=== PATIENT | male | born 1980 | race Caucasian/White ===

== ENCOUNTER 2018-02-24 11:51 | Outpatient (CLI) | payer OTHER ==
--- NOTE | 2018-02-24 14:27 | XRAY Report ---
Procedure Date: 02/24/2018 Accession Number: [id number] / [id number] Procedure: XRS - Hand 3 View RT CPT Code: FULL RESULT: EXAM: Hand 3 View RT DATE: 02/24/2018 12:11 PM CLINICAL HISTORY: PERSISTENT PAIN BONY MASS S/P RHAND INJURY 3 MO COMPARISON: None. TECHNIQUE: 3 views. FINDINGS: Bones: Normal. No fractures or bone lesions. Joints: Normal. No subluxations. Soft Tissues: Normal. No soft tissue swelling. IMPRESSION: Normal hand radiography. [facility]
== END 2018-02-24 11:52 | disposition home or self-care (01) ==
LOC: DI.S 11:51
PROVIDERS: ATTEND Registered Nurse
DX: M79.641 Pain in right hand (principal)

== ENCOUNTER 2024-02-17 07:00 | Outpatient (CLI) | payer BC, OTHER ==
--- NOTE | 2024-02-18 07:23 | XRAY Report ---
PROCEDURE: Elbow 3+V LT INDICATIONS: LEFT BICEPS TENDON RUPTURE TECHNIQUE: 3 views of the elbow were acquired. COMPARISON: None. FINDINGS: Bones: No fractures or dislocations. No suspicious bony lesions. Soft tissues: No effusion. No suspicious soft tissue calcifications or masses. IMPRESSION: No acute bony abnormality or significant joint effusion. If clinical symptoms persist, consider MRI f or further evaluation. Reviewed by: Deidre Coughlin MD on 02/18/2024 7:22 AM PDT Approved by: Deidre Coughlin MD on 02/18/2024 7:22 AM PDT Station ID: [id number]
== END 2024-02-17 23:59 | disposition home or self-care (01) ==
LOC: DI.S 07:00
PROVIDERS: ATTEND Emergency Medicine
DX: M66.822 Spontaneous rupture of other tendons, left upper arm (principal)

== ENCOUNTER 2024-02-23 08:00 | Outpatient (CLI) | payer BC ==
--- NOTE | 2024-02-23 21:59 | XRAY Report ---
PROCEDURE: Hand 1-2V LT INDICATIONS: LACERATION WITH FB POST TECHNIQUE: 2 views of the hand(s) acquired. COMPARISON: 02/23/2024. FINDINGS: Bones: No fractures or dislocations. No suspicious bony lesions. Soft tissues: Previously seen radiopaque soft tissue foreign bodies projecting near the head of the third metacarpal are no longer visualized and presumably removed. No suspicious soft tissue calcifica tions or masses. IMPRESSION: No acute bony abnormality. Interval removal of previously seen radiopaque soft tissue foreign bodies near the head of the third metacarpal. Reviewed by: Lj Castaneda MD on 02/23/2024 9:58 PM PDT Approved by: Lj Castaneda MD on 02/23/2024 9:58 PM PDT Station ID: [id number]
--- NOTE | 2024-02-24 12:22 | XRAY Report ---
PROCEDURE: Hand 1-2V LT INDICATIONS: LEFT HAND FBO TECHNIQUE: 3 views of the hand(s) acquired. COMPARISON: None. FINDINGS: Bones: No fractures or dislocations. No suspicious bony lesions. Soft tissues: A metallic soft tissue foreign body is seen in the soft tissue around the distal third metacarpal. In addition, there are 2 BB markers. IMPRESSION: 1. A metallic foreign body is noted in the soft tissue around the distal third metatarsal. Reviewed by: Deidre Coughlin MD on 02/24/2024 11:21 AM NICOL[facility] Approved by: Deidre Coughlin MD on 02/24/2024 11:21 AM NICOLLE Station ID: [id number]
== END 2024-02-23 23:59 | disposition home or self-care (01) ==
LOC: DI.S 08:00
PROVIDERS: ATTEND Emergency Medicine
DX: S61.422A Laceration with foreign body of left hand, initial encounter (principal)

== ENCOUNTER 2024-02-24 07:39 | Outpatient (CLI) | payer BC ==
--- NOTE | 2024-02-24 13:53 | MRI Report ---
PROCEDURE: Elbow LT WO INDICATIONS: BICEP TENDON RUPTURE TECHNIQUE: Noncontrast coronal proton density fast spin echo and T2 fast spin echo with fat saturation, axial an d sagittal T1 spin echo and T2 fast spin echo with fat saturation through the elbow. COMPARISON: Left elbow radiographs of 02/17/2024 FINDINGS: Image quality: Excellent. Lateral structures: The lateral ulnar collateral ligament and radial collateral ligament both appear intact. Low-grade partial intrasubstance tearing is seen at the origin of the common extensor tendon . 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 The overlying common flexor tendon appears normal. The ulnar nerve appears normal in size and signal within the cubital tunnel. Anterior structures: There is complete tearing of the distal biceps tendon from its insertion onto th e radial tuberosity with proximal tendon retraction measuring up to 4.2 cm, to the level of the lacer tus fibrosis. Fluid and hemorrhage are seen adjacent to the retracted tendon stump. The distal brachi juana insertion is intact. The median and radial neurovascular bundles appear normal; no focal muscle atrophy to suggest nerve impingement. Posterior structures: The triceps tendon appears intact. No olecranon bursal fluid. Bone and cartilage: No bone marrow contusions or fractures. No osteochondral injuries. IMPRESSION: 1.Complete tearing of the distal biceps tendon from its insertion onto the radial tuberosity with pro ximal tendon retraction measuring up to 4.2 cm. 2.Focal low-grade partial intrasubstance tearing of the common extensor tendon at the origin. 3.Remote prior osseous avulsion injury at the origin of the ulnar collateral ligament. Reviewed by: Keenan Adam MD on 02/24/2024 1:51 PM PDT Approved by: Keenan Adam MD on 02/24/2024 1:51 PM PDT Station ID: [id number]
== END 2024-02-24 07:40 | disposition home or self-care (01) ==
LOC: DI 07:39
PROVIDERS: ATTEND Orthopaedic Surgery
DX: S46.212A Strain of muscle, fascia and tendon of other parts of biceps, left arm, initial encounter (principal); S56.512A Strain of other extensor muscle, fascia and tendon at forearm level, left arm, initial encounter